=== PATIENT | male | born 1935 | race Caucasian/White ===

== ENCOUNTER 2020-04-16 10:58 | Emergency (ER) | payer OTHER, SELFPAY ==
[2020-04-16 11:11] VITALS: BP 162/77; PULSE 72; RESP 20; TEMP 36.8; O2SAT 97
--- NOTE | 2020-04-16 11:17 | ED.SKABFB ---
HPI - Skin/Abscess/Foreign Bdy General Chief complaint: Skin/Abscess/Foreign Body Stated complaint: L/hand swollen Time Seen by Provider: 04/16/20 11:17 Source: patient and RN notes reviewed Mode of arrival: ambulatory Limitations: no limitations History of Present Illness HPI narrative: 84-year-old male who presents to [facility] with complaints of left hand swelling with redness and itching related to hornet stings in left hand on Thursday. Patient denies any shortness of breath or any difficulty swallowing. Patient has mild redness to the dorsal aspect of his left hand with noted swelling to his left hand. Patient has full ROM of his left hand with strong left radial pulse, denies any tingling or numbness to his left hand. MD complaint: insect bite/sting Onset (ago): day(s) (2) Tetanus up to date: yes Location: L hand Severity: moderate Severity scale (1-10): 3 Quality: pruritic Pain Consistency: other (itchy and skin feels tight) Relieving factors: cold therapy, topical medication and other (Benadryl) Exacerbating factors: movement Context: witnessed insect bite Associated symptoms: itching and other (swelling dorsal aspect of left hand) Treatments prior to arrival: OTC topical medication, Benadryl and other (ice) Related Data Home Medications Medication Instructions Recorded Confirmed aspirin [Adult Aspirin Regimen] 81 mg PO DAILY 04/16/20 04/16/20 Allergies Allergy/AdvReac Type Severity Reaction Status Date / Time PAIN PILL Allergy Mild RASH Uncoded 01/03/10 12:51 Review of Systems Review of Systems: Narrative: CONSTITUTIONAL: Denies fever, chills, or sweats. EYES: Denies visual changes, redness, or discharge. ENT: Denies rhinorrhea, congestion, sore throat, or otalgia. CARDIOVASCULAR: Denies chest pain, palpitations, or edema. RESPIRATORY: Denies cough or dyspnea. GASTROINTESTINAL: Denies abdominal pain, nausea, vomiting, or diarrhea. GENITOURINARY: Denies dysuria or hematuria. SKIN: Positive mild redness with itching dorsal left hand with swelling present dorsal aspect MUSCULOSKELETAL: Denies back pain, joint pain, or myalgia. NEUROLOGIC: Denies headache, numbness, or weakness. PSYCHIATRIC: Denies anxiety or depression. All systems reviewed & are unremarkable except as noted in HPI and below PMFSH Past Medical History Medical History (Updated 04/16/20 @ 17:25 by Dana Jackson NP) No significant medical problems Surgical History Surgical History (Updated 04/16/20 @ 11:34 by Dana Jackson NP) History of bilateral knee replacement History of hernia surgery Hx of appendectomy Social History Social History (Updated 04/16/20 @ 11:33 by Dana Jackson NP) Smoking status: Never smoker Living arrangements: with family Gender identity (if verbalized by the patient): Male Comments At time of signature, agree with nursing past medical, surgical, social history. There is no relevant family history pertinent to the presenting complaint Exam Narrative: Exam Narrative: GENERAL: Well-appearing, well-nourished, and in no acute distress. HEAD: Normocephalic, atraumatic. EYES: PERRLA and EOMI. ENT: Nares clear, no rhinorrhea or epistaxis. Mucous membranes moist. NECK: Supple.no lymphadenopathy CHEST: Clear to auscultation. No respiratory distress.SAO2 97% on room air. HEART: Regular rate and rhythm. No murmur heard. Normal peripheral pulses. ABDOMEN: Soft, nontender, nondistended, normal active bowel sounds. EXTREMITIES: Normal range of motion. No edema. SKIN: Warm, dry, swelling with mild redness to dorsal aspect left hand from hornet stings, pruritic, strong radial pulse left, NEURO: No focal deficits. Alert and oriented x3. Course Vital Signs Vital signs: Vital Signs Temperature 36.8 C 04/16/20 11:11 Pulse Rate 72 04/16/20 11:11 Respiratory Rate 20 04/16/20 11:11 Blood Pressure 162/77 H 04/16/20 11:11 Pulse Oximetry 97 04/16/20 11:11 Temperature 36.8 C
== END 2020-04-16 11:31 | disposition home or self-care (01) ==
PROVIDERS: Emergency Provider Registered Nurse
DX: S60.562A Insect bite (nonvenomous) of left hand, initial encounter (principal); W57.XXXA Bitten or stung by nonvenomous insect and other nonvenomous arthropods, initial encounter; L23.89 Allergic contact dermatitis due to other agents; Z96.653 Presence of artificial knee joint, bilateral; Z79.82 Long term (current) use of aspirin
CPT/HCPCS: 99213; G0463

== ENCOUNTER 2020-10-15 10:20 | Emergency (ER) | payer OTHER, SELFPAY ==
[2020-10-15 10:45] VITALS: TEMP 36.8
[2020-10-15 10:52] LABS: Basophils Absolute Auto 0.1 K/mm3 (0.0-0.1); Basophils Percent Auto 1.3 % (0.2-1.2); Eosinophils Absolute Auto 1.2 K/mm3 (0-0.3); Eosinophils Percent Auto 12.5 % (0-4.4); Hematocrit 44.9 % (42.0-52.0); Hemoglobin 15.3 g/dL (14.0-18.0); Immature Granulocyte Absolute 0.02 K/mm3 (0.00-0.031); Immature Granulocyte Percent A 0.2 % (0-0.5); Lymphocytes Percent Auto 23.7 % (18.3-44.2); Mean Corpuscular HGB Conc 34.1 g/dl (32-36); Mean Corpuscular Hemoglobin 30.5 pg (26-34); Mean Corpuscular Volume 89.6 fl (80-100); Mean Platelet Volume 9.4 fl (7.4-10.4); Monocytes Absolute Auto 0.9 K/mm3 (0.1-0.6); Monocytes Percent Auto 9.4 % (2.6-8.5); Neutrophils Absolute Auto 4.9 K/mm3 (1.3-6.7); Neutrophils Percent Auto 52.9 % (45.5-73.1); Platelet Count Result 265 k/mm3 (150-375); Red Blood Count 5.01 M/mm3 (4.6-6.20); Red Cell Distribution Width 12.6 % (11.5-14.5); White Blood Count 9.3 K/mm3 (4.5-10.0)
[2020-10-15 11:01] LABS: Prothrombin Time 14.2 Seconds (11.1-14.7)
[2020-10-15 11:02] LABS: Partial Thromboplastin Time 26.9 SECONDS (22.3-36.8)
[2020-10-15 11:07] LABS: Alanine Aminotransferase 14 U/L (4-50); Albumin Level 3.4 g/dL (3.5-5.1); Alkaline Phosphatase 47 U/L (38-126); Anion Gap 7 mmol/L (8-16); Aspartate Amino Transferase 26 U/L (17-59); Bilirubin,Total 0.4 mg/dL (0.2-1.3); Blood Urea Nitrogen 12 mg/dL (9-20); Calcium 7.6 mg/dL (8.4-10.2); Carbon Dioxide 25 mmol/L (22-30); Chloride 112 mmol/L (98-107); Estimated Glomerular Filt Rate > 60; Glucose 116 mg/dL (75-110); Sodium 144 mmol/L (137-145)
--- NOTE | 2020-10-15 11:26 | WPDCN ---
Assessment and Plan Assessment and plan (1) Right-sided epistaxis: Code(s): R04.0 - Epistaxis Status: Acute Assessment and Plan: 7.5cm rhinorocket placed. Syringe and directions provided to patient. Patient instructed to follow up in 48 hours for rhinorocket removal. I've asked him to hold his asa, ginseng, omega 3, and multivitamins for the time being. HPI Data of Consult Date/Time: 10/15/20 11:26 Primary Care Provider: PHYSICIAN NOT ON STAFF Consult Narrative Narrative: Julio Humphreys is a 84 year old male who presents with a right sided epistaxis. Intermittent episodes for several days. Largest volume today. Not on blood thinners. No otolaryngologic history. No antecedent trauma. Review of Systems Constitutional: Constitutional: Denies fatigue, Denies fever(s) and Denies lethargy Eyes: Eyes: Denies blurry vision and Denies change in vision ENT: Reports as per HPI Cardiovascular: Cardiovascular: Denies chest pain Respiratory: Respiratory: Denies cough Endocrine: Endocrine: Denies fatigue Hematologic/Lymphatic: Hematologic/Lymphatic: Denies easy bleeding, Denies easy bruising and Denies lymphadenopathy Allergic/Immunologic: Allergic/Immunologic: Denies seasonal rhinorrhea PMFSH Past Medical History Medical History (Updated 10/15/20 @ 11:29 by Néstor Byrd MD) No significant medical problems Surgical History Surgical History (Updated 04/16/20 @ 11:34 by Dana Jackson NP) History of bilateral knee replacement History of hernia surgery Hx of appendectomy Social History Social History (Updated 04/16/20 @ 11:33 by Dana Jackson NP) Smoking status: Never smoker Gender identity (if verbalized by the patient): Male Meds Home Medications and Allergies Home Medications Medication Instructions Recorded Confirmed Type aspirin [Adult Aspirin Regimen] 81 mg PO DAILY 04/16/20 04/16/20 History Cardi-[place] 3 10/15/20 History ginseng mg 10/15/20 History multivit with min-folic acid tablet PO 10/15/20 History [Adult One Daily Multivitamin] Allergies Allergy/AdvReac Type Severity Reaction Status Date / Time No Known Allergies Allergy Verified 10/15/20 11:10 Vital Signs Vital Signs - 24 hr 10/15/20 10:45 Temperature 36.8 C Exam Const: General: cooperative, healthy appearing, comfortable, well developed and alert HENMT: Head: normal to inspection, normocephalic and atraumatic Ears: hearing grossly normal bilaterally, external ears normal, TM's normal bilaterally and EAC's normal General nose exam: Normal external nose present, Normal nares present, No nasal polyps present, mucous membranes and turbinates abnormal (Right clot) and abnormal septum Face and sinus: normal facial exam Mouth: Yes Normal oral and palatal mucosa present, Yes lip normal, Yes tongue normal, Yes oropharynx normal and Yes moist mucous membranes Teeth and gingiva: dentition normal and gingiva normal Throat: posterior oropharynx abnormal (Clot removed. ), tonsils normal and uvula midline Eyes: General: appearance normal, both eyes and all related structures Periorbital: periorbital findings normal Eyelids: eyelids normal Conjunctivae: conjunctivae normal Sclera: sclerae normal Neck: Neck: normal visual inspection, full ROM and no lymphadenopathy Thyroid: thyroid normal Lymphatic: no lymphadenopathy noted Resp: Effort & Inspection: normal respiratory effort and able to speak in complete sentences Cardio: Jugular venous distension: no JVD Neuro: Cranial nerves: Yes CN's II-XII intact bilaterally Results Labs CBC & Chem 7: 10/15/20 10:43 10/15/20 10:43 Labs: Short CBC 10/15/20 Range/Units 10:43 WBC 9.3 (4.5-10.0) K/mm3 Hgb 15.3 (14.0-18.0) g/dL Hct 44.9 (42.0-52.0) % Plt Count 265 (150-375) k/mm3 [facility] 10/15/20 10:43 Sodium 144 Potassium 3.0 L Chloride 112 H Carbon Dioxide 25 BUN 12 Crea
--- NOTE | 2020-10-15 11:45 | ED.EPISTAXIS ---
HPI - Epistaxis General Chief complaint: Epistaxis Stated complaint: nose bleed Time Seen by Provider: 10/15/20 10:35 Source: patient Mode of arrival: ambulatory Limitations: no limitations History of Present Illness HPI Narrative: This is an 84-year-old male that presents the emergency department for right sided epistaxis x1 hour. Reports he has had intermittent nosebleeds over the last week. Reports he could not get the one today to stop. Reports he feels the blood down the back of his throat. He has been coughing up some blood. Also reports he had some bleeding from his right eye. Denies fever. Related Data Home Medications Medication Instructions Recorded Confirmed aspirin [Adult Aspirin Regimen] 81 mg PO DAILY 04/16/20 04/16/20 Cardi-[place] 3 10/15/20 ginseng mg 10/15/20 multivit with min-folic acid tablet PO 10/15/20 [Adult One Daily Multivitamin] Allergies Allergy/AdvReac Type Severity Reaction Status Date / Time No Known Allergies Allergy Verified 10/15/20 11:10 Review of Systems Review of Systems: Narrative: CONSTITUTIONAL: Denies fever ENT: Reports epistaxis All systems reviewed & are unremarkable except as noted in HPI and below PMFSH Past Medical History Medical History (Updated 10/15/20 @ 13:14 by Myra Orozco PA-C) No significant medical problems Surgical History Surgical History (Updated 04/16/20 @ 11:34 by Dana Jackson NP) History of bilateral knee replacement History of hernia surgery Hx of appendectomy Social History Social History (Updated 04/16/20 @ 11:33 by Dana Jackson NP) Smoking status: Never smoker Gender identity (if verbalized by the patient): Male Exam Narrative: Exam Narrative: GENERAL: Well-appearing, well-nourished, and in no acute distress. HEAD: Normocephalic, atraumatic. EYES: EOMI. ENT: Right sided epistaxis. Mucous membranes moist. Oropharynx with small amount of blood NECK: Supple. No adenopathy or masses. CHEST: Airway patent EXTREMITIES: Normal range of motion. No edema. SKIN: Warm, dry, no rash. NEURO: No focal deficits. Alert and oriented x3. PSYCH: Normal mood and affect Course Vital Signs Vital signs: Vital Signs Temperature 98.3 F 10/15/20 10:45 Temperature 98.3 F 10/15/20 10:45 Procedures Epistaxis Control right: Epistaxis Control Date: 10/15/20 Nose Prepped With: oxymetazoline Direct Inspection: unable to visualize Clots Removed by: blowing nose and manually Cautery Used: none Device Inserted: nasal tampon Device Size: 7 Patient Tolerated Procedure: well and no complications Epistaxis Control Narrative: Rhino rocket inserted by Dr. Byrd [facility] - Epistaxis [facility] Narrative Medical decision making narrative: Patient presents to the emergency department for her epistaxis. Patient's vitals are stable. Hemoglobin is 15.3. Coagulation studies are normal. He takes a baby aspirin daily. Metabolic panel significant for mild hypokalemia. Patient given a dose of potassium in the ED. Bleeding controlled with Rhino Rocket, placed by Dr. Byrd, ENT. Patient is stable and felt appropriate for further outpatient valuation. Will follow up with ENT in the clinic. Also instructed to follow-up with his primary for hypokalemia. He was given warnings to return to the ER Lab Data Attestation: I reviewed the patient's lab results. Result diagrams: 10/15/20 10:43 10/15/20 10:43 Labs: Lab Results 10/15/20 10/15/20 10/15/20 Range/Units 10:43 10:43 10:43 WBC 9.3 (4.5-10.0) K/mm3 RBC 5.01 (4.6-6.20) M/mm3 Hgb 15.3 (14.0-18.0) g/dL Hct 44.9 (42.0-52.0) % MCV 89.6 (80-100) fl MCH 30.5 (26-34) pg MCHC 34.1 (32-36) g/dl RDW 12.6 (11.5-14.5) % Plt Count 265 (150-375) k/mm3 MPV 9.4 (7.4-10.4) fl Immature Gran % (Auto) 0.2 (0-0.5) % Neut % (Auto) 52.9 (45.5-73.1) %
[2020-10-15] MEDS: POTASSIUM CHLORIDE 20 MEQ PACKET (FOR LIQUID) 40 MEQ PO (12:22)
[2020-10-15 13:10] VITALS: BP 138/89; PULSE 76; RESP 18; O2SAT 97
[2020-10-15 13:26] VITALS: BP 140/93; PULSE 74; RESP 19; O2SAT 96
== END 2020-10-15 13:28 | disposition home or self-care (01) ==
PROVIDERS: Physician Assistant; Emergency Provider Emergency Medicine
DX: R04.0 Epistaxis (principal); E87.6 Hypokalemia; Z96.653 Presence of artificial knee joint, bilateral; Z79.82 Long term (current) use of aspirin
CPT/HCPCS: 30901; 36415; 80053; 85025; 85610; 85730; 99283; A9270

== ENCOUNTER 2020-10-17 01:53 | Emergency (ER) | payer OTHER, SELFPAY ==
[2020-10-17 02:07] VITALS: BP 175/95; PULSE 82; RESP 20; TEMP 36.2; O2SAT 90
--- NOTE | 2020-10-17 02:18 | ED.EPISTAXIS ---
HPI - Epistaxis General Chief complaint: Epistaxis Stated complaint: Nose bleed Time Seen by Provider: 10/17/20 02:01 Source: patient Mode of arrival: ambulatory Limitations: no limitations History of Present Illness HPI Narrative: Patient is an 85-year-old male complaining of nosebleed. Patient was seen here 2 days ago for the same complaint had a Rhino Rocket placed on his right nostril, this morning when he tried to get up to use the restroom it started to bleed again. Patient states that he has an appointment to see an ENT doctor in 6 hours, 8 AM appointment. Patient denies any injury to his nose. Patient denies any hematemesis, melena or hematochezia. Patient currently on amoxicillin prescribed to him 2 days ago. Related Data Home Medications Medication Instructions Recorded Confirmed aspirin [Adult Aspirin Regimen] 81 mg PO DAILY 04/16/20 04/16/20 [facility]-[place] 3 10/15/20 ginseng mg 10/15/20 multivit with min-folic acid tablet PO 10/15/20 [Adult One Daily Multivitamin] Allergies Allergy/AdvReac Type Severity Reaction Status Date / Time No Known Allergies Allergy Verified 10/17/20 02:14 Review of Systems Review of Systems: All systems reviewed & are unremarkable except as noted in HPI and below PMFSH Past Medical History Medical History No significant medical problems Surgical History Surgical History History of bilateral knee replacement History of hernia surgery Hx of appendectomy Social History Social History Smoking status: Never smoker Gender identity (if verbalized by the patient): Male Exam Const: General: cooperative, healthy appearing, comfortable, no acute distress, well developed, alert and awake; No confusion Orientation/consciousness: oriented to person, oriented to place, oriented to time, patient oriented x3 and No confusion Limitations: no limitations HENMT: Head: normal to inspection, normocephalic and atraumatic Ears: hearing grossly normal bilaterally, TM normal on the right and TM normal on the left General nose exam: Epistaxis present on the right Face and sinus: normal facial exam Mouth: Yes Normal oral and palatal mucosa present, Yes lip normal, Yes tongue normal and Yes oropharynx normal Throat: posterior oropharynx normal, tonsils normal and uvula midline Eyes: General: appearance normal, both eyes and all related structures Pupils: Equal, round and reactive pupils present EOM: EOMs intact bilaterally Neck: Neck: normal visual inspection, full ROM, no lymphadenopathy and no meningeal signs Chest: Chest palpation & inspection: normal inspection of the chest Resp: Effort & Inspection: normal respiratory effort, able to speak in complete sentences, no respiratory distress and not tachypneic Auscultation: clear to auscultation bilaterally, no crackles, no rales, no rhonchi and no wheezes Cardio: Rate: regular rate Rhythm: regular rhythm GI: Inspection: normal to inspection GI Palp: No abdominal tenderness, Yes Soft to palpation, No Tenderness to palpation present (GI), No Guarding due to palpation present (GI), No Rigid due to palpation and No Rebound tenderness present Auscultation: normal bowel sounds : General: Yes no CVA tenderness Back/Spine/Pelvis: Back: no CVA tenderness Skin: General skin exam: normal color, no rashes or lesions noted, elasticity normal and turgor normal Neuro: General: oriented to person, oriented to place, oriented to time, patient oriented x3, tone normal, moves all extremities, Normal light touch and pain sensation, no meningeal signs, no focal motor deficits, CN's II-XI intact bilaterally and No confusion Cranial nerves: Yes Equal, round and reactive pupils present Speech: No Abnormal speech present Sensory Exam: No Sensory deficit (Neuro) Extrem: General
[2020-10-17 02:50] VITALS: BP 154/77; PULSE 74; RESP 12; O2SAT 92
--- NOTE | 2020-10-17 14:35 | WPDPROCEDUR ---
Procedures Epistaxis Control Nostril: right Nose prepped with: oxymetazoline Direct inspection: yes and unable to visualize Clots removed by: suction Cautery used: none Device inserted: nasal tampon Patient tolerated procedure: well
== END 2020-10-17 02:50 | disposition home or self-care (01) ==
PROVIDERS: Emergency Provider Emergency Medicine; PCP Internal Medicine
DX: R04.0 Epistaxis (principal)
CPT/HCPCS: 30901; 99283; A9270

== ENCOUNTER 2024-09-13 09:38 | Emergency (ER) | payer OTHER, SELFPAY ==
--- NOTE | 2024-09-13 09:43 | ED.MALEGU ---
HPI - Male Genitourinary General Chief complaint: Urogenital-Male Stated complaint: PAINFUL URINATION/PRESSURE Time Seen by Provider: 09/13/24 10:38 Source: patient, RN notes reviewed and old records reviewed Mode of arrival: ambulatory Limitations: no limitations History of Present Illness HPI Narrative: 88-year-old male presents to the [facility] with burning and painful urination since , 5 days. patient denies fevers, abdominal pain. No CVA tenderness. Has a history of an enlarged prostate has a urologist. Tried calling them yesterday but they were closed due to weather Related Data Home Medications ?Medication ?Instructions ?Recorded ?Confirmed ?Last Taken ?Type aspirin 81 mg tablet,delayed 81 mg PO DAILY 04/16/20 04/16/20 10/15/20 History release (Adult Aspirin Regimen) [facility]-[place] 3 10/15/20 Unknown History multivitamin with minerals-folic tablet PO 10/15/20 Unknown History acid 0.4 mg tablet (Adult One Daily Multivitamin) Allergies Allergy/AdvReac Type Severity Reaction Status Date / Time No Known Allergies Allergy Verified 09/13/24 10:00 Review of Systems Review of Systems: All systems reviewed & are unremarkable except as noted in HPI and below Constitutional: Constitutional: Reports no additional constitutional complaints ENT: Reports system reviewed and no additional complaints, except as documented Cardiovascular: Cardiovascular: Reports no additional cardiovascular complaints, Denies chest pain and Denies dyspnea Respiratory: Respiratory: Reports no additional respiratory complaints, Denies chest congestion, Denies cough and Denies dyspnea Genitourinary: Genitourinary: Reports as per HPI Musculoskeletal: Musculoskeletal: Reports no additional musculoskeletal complaints Integumentary/Breasts: Skin/Breast: Reports system reviewed and no additional complaints, except as [facility]u [facility] Past Medical History Medical History No significant medical problems Surgical History Surgical History History of hernia surgery History of bilateral knee replacement Hx of appendectomy Family History Family History Father Hypertension Sibling Cerebrovascular accident Social History Social History Smoking status: Never smoker Alcohol intake: current Substance use: never Substance use type: does not use Living arrangements: with family Gender identity (if verbalized by the patient): Male Comments At the time of my signature, I reviewed and agree with the nursing past medical, surgical, social, and family history. There is no relevant family history pertinent to the patient complaint. Exam Const: General: cooperative, healthy appearing, comfortable, no acute distress, well developed, alert and well nourished Nutritional Appearance: well nourished Orientation/consciousness: patient oriented x3 Limitations: no limitations HENMT: Head: normal to inspection Eyes: General: appearance normal, both eyes and all related structures Alignment and Position: alignment normal Neck: Neck: normal visual inspection, full ROM, no lymphadenopathy and no meningeal signs Chest: Chest palpation & inspection: normal inspection of the chest Resp: Effort & Inspection: normal respiratory effort and able to speak in complete sentences Auscultation: clear to auscultation bilaterally, no crackles, no rales, no rhonchi and no wheezes Cardio: Rate: regular rate GI: GI Palp: No abdominal tenderness : General: Yes no CVA tenderness Skin: General skin exam: normal color and no rashes or lesions noted Neuro: General: patient oriented x3, gait normal, moves all extremities and no meningeal signs Cognition (Neuro): normal cognition Speech: normal speech Gait exam (Neuro): Normal gait present Extrem: General: normal to inspection, full ROM, capillary refill normal and normal gait Psych: Appearance: grossly normal and well kempt Mental Status: mental status grossly normal Speech and movement: Normal speech and movement present and Clear speech present Affect: normal affect Attitude: cooperative Course Course Level of Care: Express Care Visit Vital Signs Vital signs: Vital Signs Temperature 97.8 F 09/13/24 09:58 Pulse Rate 68 09/13/24 09:58 Respiratory Rate 16 09/13/24 09:58 Blood Pressure 120/75 09/13/24 09:58 Pulse Oximetry 96 09/13/24 09:58 Temperature 97.8 F 09/13/24 09:58 Pulse Rate 68 09/13/24 09:58 Respiratory Rate 16 09/13/24 09:58 Blood Pressure 120/75 09/13/24 09:58 Pulse Oximetry 96 09/13/24 09:58 Reviewed MDM - Male Genitourinary MDM Narrative Medical decision making narrative: patient sitting comfortably in exam room. Nontoxic, vitals stable. Patient with a history of enlarged prostate for presents with urinary pain and burning. Started 5 days ago. Urine dip shows probability of a UTI, will start on antibiotics. Patient is appropriate for outpatient treatment and follow-up. The signs and symptoms discussed with patient and in regards to go to the emergency room which both verbalized understanding Discharge instructions reviewed with patient, as well as provided in writing per nursing staff. The instructions also include specific and strict return/GO TO THE ER as well as f/u information. All questions have been answered, and the patient deny any further questions with discharge and discharge plan. Some parts of this dictation were generated by voice recognition software and may contain typographical and/or grammatical inaccuracies. Differential Diagnosis Differential diagnosis: Likely urinary tract infection and urethritis Lab Data Labs: Lab Results 09/13/24 Range/Units 09:58 POC Urine Color Yellow POC Urine Clarity Cloudy POC Urine pH 6.0 POC Ur Specif [place] 1.020 POC Urine Protein 2+ (Negative) POC Ur Glucose (UA) Negative (Negative) POC Urine Ketones Negative (Negative) POC Urine Blood 2+ (Negative) POC Urine Nitrite Negative (Negative) POC Urine Bilirubin Negative (Negative) POC Urine Urobilinogen 0.2 POC U Leukocyte Esteras 3+ (Negative) Critical Care Time Critical Care Time Critical Care Time: No Discharge Plan Discharge Clinical Impression: Urinary tract infection Qualifiers: Urinary tract infection type: acute cystitis Hematuria presence: with hematuria Qualified Code(s): N30.01 - Acute cystitis with hematuria Patient Disposition: Home, Self-Care Condition: Stable Instructions: Antibiotic Form, Urinary Tract Infection in Men (ED) Additional Instructions: Increased water intake Take Tylenol as needed for pain Take antibiotic as prescribed Today your urine dip showed a probability of a UTI. You have been prescribed an antibiotic. Your urine will be sent to our lab for a culture. If at that time a bacteria grows that is not covered by the antibiotic prescribed you will be notified. Follow-up with primary care the most important part of your care is following up with your urologist this week For new or worsening symptoms go directly to the emergency room Patient Language: Bulgarian Prescriptions: New amoxicillin-pot clavulanate 875-125 mg tablet 1 tablet PO Q12H Qty: 10 0RF No Action aspirin [Adult Aspirin Regimen] 81 mg Tablet,Delayed Release (Dr/Ec) 81 mg PO DAILY omeprazole 40 mg capsule,delayed release(DR/EC) 40 mg PO DAILY Qty: 14 0RF Adult One Daily Multivitamin 0.4 mg Tablet PO [facility] 3 potassium chloride 20 mEq tablet extended release 20 meq PO DAILY 5 Days Qty: 5 0RF Follow-up/Referrals: Flakito,Miquel [Other] Shayan,Emiliano Kelly MD [Non-Staff] - 1 Week ([facility] follow up ) Time of Disposition: 10:44
[2024-09-13 09:58] VITALS: BP 120/75; PULSE 68; RESP 16; TEMP 36.6; O2SAT 96
[2024-09-13 10:00] LABS: EDUAAPPEAR Cloudy; EDUABILI Negative (Negative); EDUABLOOD 2+ (Negative); EDUACOLOR1 Yellow; EDUAGLUCOSE Negative (Negative); EDUAKETONE Negative (Negative); EDUALEUKO 3+ (Negative); EDUANITRATE Negative (Negative); EDUAPROTEIN 2+ (Negative); EDUAUROBILI 0.2
== END 2024-09-13 10:48 | disposition home or self-care (01) ==
PROVIDERS: Emergency Provider Nurse Practitioner
DX: N30.01 Acute cystitis with hematuria (principal); B96.20 Unspecified Escherichia coli [E. coli] as the cause of diseases classified elsewhere; N40.0 Benign prostatic hyperplasia without lower urinary tract symptoms; Z96.653 Presence of artificial knee joint, bilateral
CPT/HCPCS: 81003; 87077; 87086; 87186; 99213; G0463